=== PATIENT | male | born 1950 | race Caucasian/White ===

== ENCOUNTER 2016-10-26 13:48 | Inpatient (IN) | payer MEDICARE, BC ==
[~2016-10-26] VITALS: Ht 175.3 cm; Wt 85.6 kg
[2016-12-19] MEDS ORDERED: MOBIC 7.5MG7.5 MG PO (12:41)
[2016-12-19] MEDS ORDERED: CHONDROITIN/GLU1 SGL PO (12:41)
[2016-12-19] MEDS ORDERED: GOOD NEIGH3.4 GM/Dos PO (12:42)
[2016-12-19] MEDS ORDERED: FERROUS SU325 MG/TAB PO (12:43)
[2016-12-19] MEDS ORDERED: VITAMIN C500 MG PO (12:44)
[2016-12-19] MEDS ORDERED: FOLIC ACID 40400 MCG PO (12:44)
[2016-12-20] VITALS (11 sets, daily range): BP systolic 113–138; BP diastolic 58–75; PULSE 57–81; TEMP 97.7–98.3
[2016-12-21 01:07] VITALS: BP 110/58; PULSE 76; TEMP 98
[2016-12-21 04:07] VITALS: BP 108/54; PULSE 66; TEMP 98.2
[2016-12-21 07:02] LABS: HEMATOCRIT 38.1 % (42.0-52.0); HEMOGLOBIN 13.2 g/dl (13.5-18.0)
[2016-12-21] MEDS ORDERED: NORCO 325 MG-7.1 TAB PO (07:16)
[2016-12-21] MEDS ORDERED: ASPI325T6 PO (07:16)
[2016-12-21] MEDS ORDERED: ROXICODONE 55 MG/TAB PO (07:17)
[2016-12-21 07:34] VITALS: BP 117/69; PULSE 50; TEMP 98.3
[2016-12-21 11:05] VITALS: BP 111/65; PULSE 50; TEMP 98.3
== END 2016-12-21 14:30 | disposition home or self-care (01) | DRG 483 ==
LOC: JCC 12-20 05:03
PROVIDERS: Orthopaedic Surgery
PROC: 0RRJ0JZ Replacement of Right Shoulder Joint with Synthetic Substitute, Open Approach (ICD-10-PCS; principal; 2016-12-20 07:30)
DX: M19.011 Primary osteoarthritis, right shoulder (principal); Z87.891 Personal history of nicotine dependence
CPT/HCPCS: A4566; A9284; C1713; C1776; J0171; J0690; J1100; J2250; J2270; J2405; J2704; J2795; J3010; J7120

== ENCOUNTER → 2016-12-11 | Outpatient (CLI) | payer MEDICARE, BC ==
[~2016-12-11] MED LIST: ASPI325T6 PO; CHONDROITIN/GLU1 SGL PO; FERROUS SU325 MG/TAB PO; FOLIC ACID 40400 MCG PO; GOOD NEIGH3.4 GM/Dos PO; MOBIC 7.5MG7.5 MG PO; NORCO 325 MG-7.1 TAB PO; ROXICODONE 55 MG/TAB PO; VITAMIN C500 MG PO
== END ==
LOC: COL.LAB 10:56
DX: Z01.812 Encounter for preprocedural laboratory examination (principal); M25.811 Other specified joint disorders, right shoulder